=== PATIENT | male | born 1955 | race Caucasian/White ===

== ENCOUNTER 2023-12-16 11:15 | Outpatient (CLI) | payer OTHER, MEDICARE | END 2023-12-16 23:59 | disposition home or self-care (01) | LOC: MRI02 11:15 | PROVIDERS: ATTEND Family Medicine Sports Medicine | DX: M50.123 Cervical disc disorder at C6-C7 level with radiculopathy (principal); M47.22 Other spondylosis with radiculopathy, cervical region; M48.02 Spinal stenosis, cervical region; M77.9 Enthesopathy, unspecified | CPT/HCPCS: 72141 ==